=== PATIENT | male | born 1990 ===

== ENCOUNTER 2020-08-05 09:19 | Observation (INO) ==
[2020-08-05 10:13] LABS: Basophils % 0.2 % (0.0-0.8); Eosinophils # 0.1 10*3/uL (0.0-0.87); Eosinophils % 0.6 % (0.00-10.9); Hemoglobin 15.5 GM/DL (14.0-18.0); Immature Granulocytes Absolute 0.12 #; Lymphocytes # 1.1 10*3/uL (1.4-4.0); Lymphocytes % 9.2 % (21.2-54.2); Mean Corpuscular HGB Conc 35.2 GM/DL (32-36); Mean Corpuscular Volume 94.2 FL (87-102); Mean Platelet Volume 9.7 FL (9.6-12.0); Monocytes % 3.9 % (1.7-12.7); NRBC # 0.02 10*3/uL; Neutrophils % 85.1 % (38.7-73.9); Platelet Count 189 T/CUMM (130-400); Red Blood Count 4.67 MC/CUMM (3.8-5.5); Red Cell Distribution Width 12.8 % (9.3-17.3); White Blood Count 12.4 T/CUMM (4-12)
[2020-08-05 10:20] LABS: Bacteria,Urine Occasional /HPF (Few); Bilirubin,Urine Negative (Negative); Blood, Urine Moderate mg/dL (Negative); Glucose,Urine (UA) Negative (Negative); Hyaline Casts,Urine 1 /LPF (0-3); Ketones,Urine Negative (Negative); Mucus,Urine Occasional /LPF (Occasional); Nitrite,Urine Negative (Negative); Protein,Urine Negative; RBC,Urine 1 /HPF (0-4); Urine Appearance CLEAR (Clear); Urine Color Yellow (Yellow); Urine Urobilinogen < 2.0 EU/DL (0.2-1.0); WBC,Urine <1 /HPF (0-6)
[2020-08-05 10:23] LABS: Barbiturates Screen,Urine Negative (Negative); Benzodiazepines Screen,Urine Negative (Negative); Cannabinoid Screen,Urine Negative (Negative); Opiate Screen,Urine Negative (Negative); Phencyclidine Screen,Urine Negative (Negative)
[2020-08-05 10:24] LABS: INR 0.9; PT Patient Result 10.2 SECS (9.8-11.9)
[2020-08-05] MEDS ORDERED: ONDANSETRON 4 MG/2 ML VIAL IV STA (10:27)
[2020-08-05] MEDS ORDERED: HYDROmorphone 2 MG/1 ML VIAL IV STA (10:27)
[2020-08-05] MEDS ORDERED: DIPH/TET/ACEL PERT BOOSTER VACCINE 0.5 ML VIAL IM ONE (10:27)
[2020-08-05 10:32] LABS: Albumin 3.8 G/DL (3.4-5.0); Bilirubin,Total 0.4 MG/DL (0.2-1.0); Calcium 8.5 MG/DL (8.5-10.1); Osmolality,Calculated 278.5 MOS/KG (273-304); Total Protein 7.3 G/DL (6.4-8.3)
[2020-08-05] MEDS ORDERED: propofoL 200 MG/20 ML VIAL IV ONE (11:25)
[2020-08-05] MEDS ORDERED: MAGNESIUM HYDROXIDE SUSP 30 ML UDCUP PO PRN (12:53)
[2020-08-05] MEDS: LACTATED RINGERS 1,000 ML IV SCH ×2 (15:30→23:35)
[2020-08-06] MEDS ORDERED: INFLUENZA VIRUS VACCINE 0.5 ML SYRINGE IM ONE (08:00)
[2020-08-06] MEDS: LACTATED RINGERS 1,000 ML IV SCH (09:55)
[2020-08-06] MEDS ORDERED: ENOXAPARIN 40 MG/0.4 ML SYRINGE SUBCUT SCH (13:00)
[2020-08-06 16:33] VITALS: BP 137/66
== END 2020-08-06 18:50 | disposition home or self-care (01) ==
LOC: N.EDINP 09:19 → N.ED 09:19 → N.EDINP 15:10 → N.3E 15:21
PROVIDERS: ADMIT Orthopaedic Surgery; ATTEND Orthopaedic Surgery